=== PATIENT | male | born 1940 | race Caucasian/White ===

== ENCOUNTER 2016-11-24 07:06 | Outpatient (CLI) | payer MEDICARE, BC ==
[2016-11-24 08:41] LABS: Calc. Creatinine Clearance 0 mL/min (70-130); Estimated GFR-MDRD Greater than 90
== END 2016-11-24 07:07 | disposition home or self-care (01) ==
LOC: MADLAB 07:06
PROVIDERS: ATTEND Internal Medicine Hematology & Oncology
DX: C34.81 Malignant neoplasm of overlapping sites of right bronchus and lung (principal); C18.7 Malignant neoplasm of sigmoid colon; E61.1 Iron deficiency; R11.0 Nausea
CPT/HCPCS: 82565

== ENCOUNTER 2016-11-28 09:02 | Outpatient (CLI) | payer MEDICARE, BC ==
[2016-11-28] MEDS ORDERED: Iopamidol 370 76% 100 ML VIAL ONE (09:43)
--- NOTE | 2016-11-28 12:43 | CT ---
CT THORAX WITH CONTRAST CT ABDOMEN WITH CONTRAST: DATE: 11-28-16 HISTORY: 76-year-old male with right upper lobe lung cancer. COMPARISON: 07-14-16 TECHNIQUE: IV iodinated contrast media: 100 ml of Isovue. Oral contrast was given. Single venous phase scan continued from chest through the iliac crests. FINDINGS: The tumor mass in the posterior segment of the right upper lobe medially has become larger. Measurem ents are very unprecise because of the very irregular shape. Previous measurements were given as 3.5 x 2.2 x 2.2 cm. Current measurements are approximately 3.5 x 2.5 x 3 cm in the same region, but it is probably larger than this, because a superior extent broadly abutting the posteromedial pleural s urface is now present, reaching the apex of the pleural surface and containing multiple cavitation. When this is included, the greatest craniocaudal dimension is greater than 6.5 cm. Heavy atherosclerotic calcification of LAD. No cardiomegaly. Extensive atherosclerotic calcification , without aneurysm, of the entire aorta. No mediastinal or hilar lymphadenopathy. No evidence of bárbara tructive osseous lesion. Diffuse emphysematous changes of the bilateral upper lobes. Liver, bilateral kidneys, spleen, and adrenals are normal. Again noted is the previously described s mall 1 cm nodular density abutting the posterior aspect of the body of the pancreas. This has not ch anged in size. There is no retroperitoneal or periportal lymphadenopathy. Visualized portions of sma ll intestine and colon demonstrate no gross pathology. No pleural effusion or ascites. IMPRESSION: 1. Interval growth of the right upper lobe primary lung cancer tumor mass. 2. No evidence of lymphadenopathy or distant metastasis. 3. Coronary atherosclerotic disease. YANCY Pena POS: THEODORE
== END 2016-11-28 09:03 | disposition home or self-care (01) ==
LOC: MADCT 09:02
PROVIDERS: ATTEND Internal Medicine Hematology & Oncology
DX: C34.81 Malignant neoplasm of overlapping sites of right bronchus and lung (principal); C18.7 Malignant neoplasm of sigmoid colon; E61.1 Iron deficiency; R11.0 Nausea; C34.11 Malignant neoplasm of upper lobe, right bronchus or lung; I25.10 Atherosclerotic heart disease of native coronary artery without angina pectoris
CPT/HCPCS: 71260; 74160

== ENCOUNTER 2017-03-27 07:27 | Outpatient (CLI) | payer MEDICARE, BC ==
[2017-03-27 08:11] LABS: Calc. Creatinine Clearance 0 mL/min (70-130); Estimated GFR-MDRD Greater than 90
[2017-03-27] MEDS ORDERED: Iopamidol 370 76% 100 ML VIAL ONE (10:22)
--- NOTE | 2017-03-27 11:09 | CT ---
CT OF THE CHEST AND ABDOMEN AND PELVIS WITH IV CONTRAST: Date: 03/27/17 INDICATION: History of lung and colon cancer. COMPARISON: Prior CT of the chest, abdomen, and pelvis dated 01/29/17. FINDINGS: The spiculated mass within the posterior segment of the right upper lobe is likely stable measuring 3.2 x 2.0 cm. The surrounding atelectasis is stable. Radiation induced fibrotic change is stable. Em physematous changes of the lungs are stable. Calcified granuloma right upper lobe is stable. No pleu ral effusion or pneumothorax is evident. No new enlarged lymph nodes are present. Vascular calcifica tion of the coronary arteries and thoracic aorta are similar. No focal hepatic lesion is evident. The spleen, pancreas, and adrenal glands are normal appearing. The visualized kidneys are normal appearing. No free fluid or enlarged lymph nodes are evident within the abdomen. The large and small bowel appear within normal limits. Anastomotic suture line demonstrates some mild irregular wall thickening along its posterior margin on image 104 of series 2. There are enlarged presacral lymph nodes measuring 9.5 and 7.0 mm, respect ively, on image 104 of series 2. There are mildly prominent lymph nodes seen within the left interna l iliac chain measuring 5.5 mm on image 105 of series 2. There is an enlarged left common iliac lymp h node measuring 7.0 mm, which was not present on the comparison exam dated 11/28/16. The anastomoti c suture line is not well seen on the comparison study due to the pelvis not being included within t he exam. The prostate is enlarged. The prostate measures 7.2 cm in its greatest transverse dimension. There is diffuse osteopenia. Small sclerotic lesion involving the left ilium is stable. There is sca ttered degenerative and osteoarthritic change. IMPRESSION: 1. Asymmetric posterior wall thickening seen along the posterior aspect of the colorectal anastomot ic suture line within the lower pelvis suspicious for tumor recurrence. There are enlarged presacral lymph nodes which suspicious for malignant lymphadenopathy. Recommend colonoscopy and consideration for PET CT imaging. 2. Spiculated mass within the right upper lobe with adjacent radiation induced fibrosis is unchange d. 3. Stable emphysema and findings due to prior granulomatous disease. 4. Prostate enlargement. CODE T. POS: THEODORE
== END 2017-03-27 07:28 | disposition home or self-care (01) ==
LOC: MADCT 07:27
PROVIDERS: ATTEND Surgery
DX: C34.90 Malignant neoplasm of unspecified part of unspecified bronchus or lung (principal); C18.9 Malignant neoplasm of colon, unspecified; K63.89 Other specified diseases of intestine; J43.8 Other emphysema; N40.0 Benign prostatic hyperplasia without lower urinary tract symptoms; J70.1 Chronic and other pulmonary manifestations due to radiation
CPT/HCPCS: 36415; 71260; 74177; 82565

== ENCOUNTER 2019-06-21 14:22 | Emergency (ER) | payer MEDICARE, BC ==
[2019-06-21] MEDS ORDERED: Bacitracin 1 PK ONE (15:14)
[2019-06-21] MEDS ORDERED: Clindamycin 150 MG CAP ONE (15:14)
== END 2019-06-21 16:20 | disposition home or self-care (01) ==
LOC: MADERS 14:22
DX: L02.31 Cutaneous abscess of buttock (principal)
CPT/HCPCS: 99283